=== PATIENT | female | born 1955 | race Caucasian/White ===

== ENCOUNTER 2016-07-29 08:01 | Day surgery (SDC) | payer OTHER ==
[~2016-07-29 08:01] MED LIST: DIPRIVAN 200 MG/20 ML IV ONE
[2016-07-29] MEDS ORDERED: Lactated Ringers 1,000 ML IV SCH (08:30)
[2016-07-29] MEDS ORDERED: TETRACAINE 0.5% STERI-UNIT SOL OP ONE ×2 (08:30)
[2016-07-29] MEDS ORDERED: Ak-Dilate OPHTHALMIC*** 0.71 ML, Cyclogyl 1% OPHTH SOL 5 ML 0.71 ML, GATIFLOXACIN 0.5% ... OP ONE ×4 (08:30)
[2016-07-29] MEDS ORDERED: Lactated Ringers 1,000 ML IV ONE (08:32)
[2016-07-29] MEDS ORDERED: ACETAZOLAMIDE 250 MG TABLET PO ONE (09:30)
[2016-07-29] MEDS ORDERED: Zofran 4 MG/2 ML VIAL IV PRN (09:30)
[2016-07-29] MEDS ORDERED: BSS 500 ML, Fortaz/Tazicef 1 GM** 0.2 G IO ONE ×2 (10:00)
[2016-07-29] MEDS ORDERED: LIDOCAINE HCL 1% AMPUL 5 ML IJ ONE (10:00)
[2016-07-29] MEDS ORDERED: Epinephrine Preservative Free 1 MG/ML INTRAOP ONE (10:00)
[2016-07-29] MEDS ORDERED: BETADINE 5% OPHTHALMIC 30 ML OP ONE (10:00)
[2016-07-29 11:51] VITALS: BP 147/72; PULSE 16; O2SAT 95
--- NOTE | 2016-07-29 12:49 | OP ---
DATE/TIME OF OPERATION: 07/29/2016 1034 TIME DICTATED: 1206 PREOPERATIVE DIAGNOSIS: Senile cataract of left eye. POSTOPERATIVE DIAGNOSIS: Senile cataract of left eye. SURGEON: Baldomero Cooley MD AUTOMOBILE BRAKE BONDER: None. OPERATION: Cataract extraction of left eye with an intraocular lens implant STANDARD __X___ COMPLEX ANESTHESIA: MAC. ___X___ Monitored anesthesia care in combination with topical and intra-cameral anesthesia (because of the established specific risk of reflux, arrhythmias, or an anxiety attack associated with ocular manipulation as well as difficulty of the miner to manage such potentially catastrophic events while simultaneously attempting to complete the surgical procedure, it was deemed necessary for the patient's safety to have an anesthesiologist or a nurse health and safety advisor present during the procedure whenever possible. The anesthesiologist or the nurse health and safety advisor was utilized to monitor and regulate the intravenous sedation of the patient, so the patient was cooperative, relaxed, and comfortable). Topical anesthesia using Tetracaine eye drops together with intra cameral anesthesia using Lidocaine 1% MPF. The nurse was utilized to monitor the patient. ANESTHESIA PROVIDER: Cullen Vail CRNA. COMPLICATIONS: None. BLOOD LOSS: None. INDICATIONS: The patient is undergoing cataract surgery in the hopes of eliminating the visual complaints and difficulty. PROCEDURE: After arriving at the facility's outpatient surgery area, an IV was started; the patient was given 5 mg of p.o. Versed. (If an anesthesia provider was not monitoring the patient) The patient was then given topical anesthetic Tetracaine eye drops. A cotton pellet was soaked into a solution of a combination of Zymaxid 0.5%, Aj-Synephrine 2.5% and Ocufen (other drops might have been substituted referenced in the patient's record). The pellet was inserted by the RN into the lower conjunctival cul-de-sac with a sterile forceps and left for 20 minutes. The pellet was then removed by the RN with a sterile forceps before taking the patient to the operating room. The preoperative area nurse identified the patient and marked the correct eye to be operated on. I identified the correct eye to be operated on and marked it appropriately in the outpatient surgery area. The patient was then taken into the operating room. Tetracaine eye drops were installed again in the correct eye. The eyelids and the lashes and the lid margins were scrubbed with Betadine solution. One drop of the diluted Betadine solution was placed in the conjunctival cul-de-sac for 45 seconds and then was irrigated. A drop of Tetracaine Gel was placed in the conjunctival cul-de-sac. The patient's forehead was taped to secure it during the procedure. The patient was monitored. The patient was then draped in the usual way for this procedure. An eye speculum was used to separate the eyelids. The eye was then fixated and a temporal 2.5 mm incision was made in the clear cornea temporally at the limbus. Through the incision, 0.25 cc of 1% non-preserved lidocaine was injected into the anterior chamber for intracameral anesthesia. The anterior chamber was then filled with viscoelastic. The pupil was small. I felt that it would be safer to mechanically dilate the pupil. A Malyugin ring was used at this point which dilated the pupil. That was removed at the end of the procedure prior to aspiration of the viscoelastic from the anterior chamber and posterior to the intraocular lens implant. The cataract had a great amount of cortical changes. That rendered seeing the anterior capsule difficult for a safe performance of an anterior capsulotomy. I injected an air bubble into the anterior chamber. I then injected 1 ML of vision blue solution into the anterior chamber. The vision blue solution was irrigated from the anterior chamber after 30 seconds. The anterior capsule was stained which facilitated performing the anterior capsulotomy safely. After that was completed, a cystotome was introduced into the anterior chamber and a round anterior capsulotomy was performed. The capsule was removed by a forceps. Hydrodissection was next carried utilizing a 25-gauge cannula and balanced salt solution to delineate the cortical material from the capsule and the nucleus from the cortical material. The nucleus was rotated freely into the capsular bag with no difficulty. The phaco tip of the [employer] Phacoemulsifier was introduced into the anterior chamber and two grooves were made into the nucleus 90 degrees apart. Using two spatulas resulted into the nucleus being fractured into four quadrants. The phaco tip was then used to remove each quadrant of the nucleus. Viscoelastic was used during this process to protect the corneal endothelium. Once the entire nucleus was removed, the phaco tip then was removed and the irrigation tip was introduced into the eye and the cortex was removed. The posterior capsule was polished. It was noticed that there was a tear into the posterior capsule with few vitreous strands into the pupil plan. An anterior vitrectomy was performed. A 21.00 diopter, SN60WF, posterior chamber lens implant, was inspected and found to be grossly normal. The implant was inserted into the implant injector cartridge; Viscoelastic again was introduced into the anterior chamber, which filled the capsular bag. The implant injector's cartridge tip was placed at the limbal wound and the posterior chamber implant was released into the capsular bag and rotated appropriately. The implant was found to be into the capsular bag and it was centered. __X___ 0.2 ml of Tri-Moxi was introduced via 27 gauge cannula into the vitreous cavity through the ciliary processes. Viscoelastic was aspirated from the anterior chamber and posterior to the intraocular lens implant from the capsular bag using the irrigating tip. The anterior chamber was irrigated and filled with 5 cc antibiotic solution (500 cc of BSS plus 2 ml of Fortaz 100 mg/ml) ( if patient was not allergic to the medication). The lips of the corneal incision were hydrated using BSS solution. The anterior chamber was checked and found to be water tight. One drop each of antibiotic, steroid and NSAID drops (refer to chart for drops used) were placed in the conjunctival cul-de-sac of the operated eye. Patient tolerated the procedure quite well and left the operating room in satisfactory condition. DISCHARGE SUMMARY: The patient was released in stable condition. The patient and those with the patient were given an instruction sheet as of how to care for the eye after surgery as well as counseling on any abnormal laboratory studies by the postoperative RN. The patient was also given an appointment card for follow-up in the office and is to call immediately for any difficulties including but not limited to pain in the eye, decreased vision, discharge from the eye, headache and or fever. DISCHARGE DIAGNOSIS: Pseudophakia of left eye.
== END 2016-07-29 12:00 | disposition home or self-care (01) ==
LOC: SDC 08:01
PROVIDERS: ATTEND Ophthalmology
PROC: 08RK3JZ Replacement of Left Lens with Synthetic Substitute, Percutaneous Approach (ICD-10-PCS; principal; 2016-07-29)
DX: H25.9 Unspecified age-related cataract (principal); I10 Essential (primary) hypertension; M19.90 Unspecified osteoarthritis, unspecified site; Z79.899 Other long term (current) drug therapy
CPT/HCPCS: 00142; C1780; J0171; J2704; A9270-GY

== ENCOUNTER 2016-08-26 08:10 | Day surgery (SDC) | payer OTHER ==
[~2016-08-26 08:10] MED LIST changes: +Ak-Dilate OPHTHALMIC*** 0.71 ML, Cyclogyl 1% OPHTH SOL 5 ML 0.71 ML, GATIFLOXACIN 0.5% ... OP ONE; +Lactated Ringers 1,000 ML IV SCH; +TETRACAINE 0.5% STERI-UNIT SOL OP ONE
[2016-08-26] MEDS ORDERED: Lactated Ringers 1,000 ML IV ONE (08:29)
[2016-08-26] MEDS ORDERED: Zofran 4 MG/2 ML VIAL IV PRN (09:00)
[2016-08-26] MEDS ORDERED: ACETAZOLAMIDE 250 MG TABLET PO ONE (09:00)
[2016-08-26] MEDS: TETRACAINE 0.5% STERI-UNIT SOL OP ONE (09:03)
[2016-08-26 11:22] VITALS: O2SAT 97
[2016-08-26 11:51] VITALS: BP 125/72; PULSE 73
--- NOTE | 2016-08-26 13:08 | OP ---
DATE/TIME OF OPERATION: 08/26/2016 1019 TIME DICTATED: 1231 PREOPERATIVE DIAGNOSIS: Senile cataract of right eye. POSTOPERATIVE DIAGNOSIS: Senile cataract of right eye. SURGEON: Baldomero Cooley MD SALES NEGOTIATOR: None. OPERATION: Cataract extraction of right eye with an intraocular lens implant. STANDARD __X___ COMPLEX ANESTHESIA: MAC. ___X___ Monitored anesthesia care in combination with topical and intra-cameral anesthesia (because of the established specific risk of reflux, arrhythmias, or an anxiety attack associated with ocular manipulation as well as difficulty of the glove machine operator to manage such potentially catastrophic events while simultaneously attempting to complete the surgical procedure, it was deemed necessary for the patient's safety to have an anesthesiologist or a nurse bonding supervisor present during the procedure whenever possible. The anesthesiologist or the nurse bonding supervisor was utilized to monitor and regulate the intravenous sedation of the patient, so the patient was cooperative, relaxed, and comfortable). Topical anesthesia using Tetracaine eye drops together with intra cameral anesthesia using Lidocaine 1% MPF. The nurse was utilized to monitor the patient. ANESTHESIA PROVIDER: Cullen Vail CRNA. COMPLICATIONS: None. BLOOD LOSS: None. INDICATIONS: The patient is undergoing cataract surgery in the hopes of eliminating the visual complaints and difficulty. PROCEDURE: After arriving at the facility's outpatient surgery area, an IV was started; the patient was given 5 mg of p.o. Versed. (If an anesthesia provider was not monitoring the patient) The patient was then given topical anesthetic Tetracaine eye drops. A cotton pellet was soaked into a solution of a combination of Zymaxid 0.5%, Aj-Synephrine 2.5% and Ocufen (other drops might have been substituted referenced in the patient's record). The pellet was inserted by the RN into the lower conjunctival cul-de-sac with a sterile forceps and left for 20 minutes. The pellet was then removed by the RN with a sterile forceps before taking the patient to the operating room. The preoperative area nurse identified the patient and marked the correct eye to be operated on. I identified the correct eye to be operated on and marked it appropriately in the outpatient surgery area. The patient was then taken into the operating room. Tetracaine eye drops were installed again in the correct eye. The eyelids and the lashes and the lid margins were scrubbed with Betadine solution. One drop of the diluted Betadine solution was placed in the conjunctival cul-de-sac for 45 seconds and then was irrigated. A drop of Tetracaine Gel was placed in the conjunctival cul-de-sac. The patient's forehead was taped to secure it during the procedure. The patient was monitored. The patient was then draped in the usual way for this procedure. An eye speculum was used to separate the eyelids. The eye was then fixated and a temporal 2.5 mm incision was made in the clear cornea temporally at the limbus. Through the incision, 0.25 cc of 1% non-preserved lidocaine was injected into the anterior chamber for intracameral anesthesia. The anterior chamber was then filled with viscoelastic. The pupil was small. I felt that it would be safer to mechanically dilate the pupil. A Malyugin ring was used at this point which dilated the pupil. That was removed at the end of the procedure prior to aspiration of the viscoelastic from the anterior chamber and posterior to the intraocular lens implant. The cataract had a great amount of cortical changes. That rendered seeing the anterior capsule difficult for a safe performance of an anterior capsulotomy. I injected an air bubble into the anterior chamber. I then injected 1 ML of vision blue solution into the anterior chamber. The vision blue solution was irrigated from the anterior chamber after 30 seconds. The anterior capsule was stained which facilitated performing the anterior capsulotomy safely. After that was completed, a cystotome was introduced into the anterior chamber and a round anterior capsulotomy was performed. The capsule was removed by a forceps. Hydrodissection was next carried utilizing a 25-gauge cannula and balanced salt solution to delineate the cortical material from the capsule and the nucleus from the cortical material. The nucleus was rotated freely into the capsular bag with no difficulty. The phaco tip of the [employer] Phacoemulsifier was introduced into the anterior chamber and two grooves were made into the nucleus 90 degrees apart. Using two spatulas resulted into the nucleus being fractured into four quadrants. The phaco tip was then used to remove each quadrant of the nucleus. Viscoelastic was used during this process to protect the corneal endothelium. Once the entire nucleus was removed, the phaco tip then was removed and the irrigation tip was introduced into the eye and the cortex was removed. The posterior capsule was polished. It was noticed that there was a tear into the posterior capsule with few vitreous strands into the pupil plan. An anterior vitrectomy was performed. A 21.00 diopter, SN60WF, posterior chamber lens implant, was inspected and found to be grossly normal. The implant was inserted into the implant injector cartridge; Viscoelastic again was introduced into the anterior chamber, which filled the capsular bag. The implant injector's cartridge tip was placed at the limbal wound and the posterior chamber implant was released into the capsular bag and rotated appropriately. The implant was found to be into the capsular bag and it was centered. __X___ 0.2 ml of Tri-Moxi was introduced via 27 gauge cannula into the vitreous cavity through the ciliary processes. Viscoelastic was aspirated from the anterior chamber and posterior to the intraocular lens implant from the capsular bag using the irrigating tip. The anterior chamber was irrigated and filled with 5 cc antibiotic solution (500 cc of BSS plus 2 ml of Fortaz 100 mg/ml) ( if patient was not allergic to the medication). The lips of the corneal incision were hydrated using BSS solution. The anterior chamber was checked and found to be water tight. One drop each of antibiotic, steroid and NSAID drops (refer to chart for drops used) were placed in the conjunctival cul-de-sac of the operated eye. Patient tolerated the procedure quite well and left the operating room in satisfactory condition. DISCHARGE SUMMARY: The patient was released in stable condition. The patient and those with the patient were given an instruction sheet as of how to care for the eye after surgery as well as counseling on any abnormal laboratory studies by the postoperative RN. The patient was also given an appointment card for follow-up in the office and is to call immediately for any difficulties including but not limited to pain in the eye, decreased vision, discharge from the eye, headache and or fever. DISCHARGE DIAGNOSIS: Pseudophakia of right eye.
[2016-08-26] MEDS ORDERED: LIDOCAINE HCL 1% AMPUL 5 ML IJ ONE (13:30)
[2016-08-26] MEDS ORDERED: BSS 500 ML, Fortaz/Tazicef 1 GM** 0.2 G IO ONE ×2 (13:30)
[2016-08-26] MEDS ORDERED: BETADINE 5% OPHTHALMIC 30 ML OP ONE (13:30)
[2016-08-26] MEDS ORDERED: Epinephrine Preservative Free 1 MG/ML INTRAOP ONE (13:30)
== END 2016-08-26 11:51 | disposition home or self-care (01) ==
LOC: SDC 08:10
PROVIDERS: ATTEND Ophthalmology
PROC: 08RJ3JZ Replacement of Right Lens with Synthetic Substitute, Percutaneous Approach (ICD-10-PCS; principal; 2016-08-26)
PROC: 08B43ZZ Excision of Right Vitreous, Percutaneous Approach (ICD-10-PCS; 2016-08-26)
DX: H25.9 Unspecified age-related cataract (principal); I10 Essential (primary) hypertension; M19.90 Unspecified osteoarthritis, unspecified site
CPT/HCPCS: 00142; C1780; J0171; J2704; A9270-GY

== ENCOUNTER 2017-01-26 14:10 | Inpatient (IN) | payer OTHER ==
[2017-01-26] MEDS: NORCO 7.5/325 MG TAB PO PRN (20:14)
[2017-01-26] MEDS: ZOCOR 20MG PO SCH (21:25)
[2017-01-27] MEDS: NORCO 7.5/325 MG TAB PO PRN ×5 (03:57→22:26)
--- NOTE | 2017-01-27 08:54 | PCM.HP ---
History of Present Illness - Chief Complaint Chief Complaint: Deconditioning r/t left total knee replacement History of Present Illness: is a 61 year old female pt of mine from [facility] who is POD #5 from repeat total knee replacement by Dr. Daniel (L knee). Her previous knee had trouble with the glue apparently, she said there were no surprises or problems noted during the surgery. She comes here for rehab. So far her rehab has been going well. This morning she is not feeling great, she is having upper and mid stomach pain , bilat, of 5-6/10. No vomiting. Tolerating po. She thinks it's due to the celebrex. Her knee pain this morning is 4/10. She does complain of some soreness in the R trapezius. - Review of Systems Abdominal/Gastrointestinal: Abdominal Pain, Constipation Skin: Pruritis (L lower back) Psychological: No Anxiety, No Depression, No Suicidal Ideations All Other Systems: Reviewed and Negative Medications & Allergies Home Medications: Home Medication List Hydrochlorothiazide 12.5 mg PO DAILY 06/22/13 [History Confirmed 01/26/17] Telmisartan 80 mg [Micardis 80 MG Tablet] 80 mg PO DAILY 06/22/13 [ History Confirmed 01/26/17] Escitalopram Oxalate [Lexapro] 10 mg PO DAILY 08/23/15 [History Confirmed ] Aspirin EC 325 mg [Ecotrin 325 MG] 325 mg PO DAILY 01/26/17 [History Confirmed 01/26/17] Celecoxib 100 mg [celeBREX 100 MG] 100 mg PO DAILY 01/26/17 [History Confirmed 01/26/17] Hydrocodone Bit/Acetaminophen [[place] 7.5-325 Tablet] 1 each PO Q4HPRN PRN [History Confirmed 01/26/17] Lidocaine 1 patch TOP DAILY 01/26/17 [History Confirmed 01/26/17] Multivitamin [Multivitamins] 1 each PO DAILY 01/26/17 [History Confirmed ] Simvastatin 20Mg [Zocor 20Mg] 20 mg PO QPM 01/26/17 [History Confirmed 01/26] Allergies/Adverse Reactions: Allergies Allergy/AdvReac Type Severity Reaction Status Date / Time shingles vaccine Allergy Severe Blisters Uncoded 08/26/16 08:34 - Past Medical History Past Medical History: Yes Neurological History: Migraines ENT History: Cataracts Cardiac History: Hypertension Respiratory History: No Pertinent History Endocrine Medical History: No Pertinent History Musculoskelatal History: Arthritis GI Medical History: No Pertinent History History: No Pertinent History Pyscho-Social History: Anxiety, Depression Reproductive Disorders: No Pertinent History Comment: anemia - Female History Are you now?: No - Past Surgical History Past Surgical History: Yes Neuro Surgical History: No Pertinent History Cardiac History: No Pertinent History Respiratory Surgery: No Pertinent History GI Surgical History: No Pertinent History Genitourinary Surgical Hx: No Pertinent History Musculskeletal Surgical Hx: Joint Replacement Female Surgical History: Section, Tubal Ligation Other Surgical History: left X2 and right knee replacements - Social History Smoking Status: Never smoker How long have you smoked: 10years Exposure to second hand smoke: No Alcohol: None Drug Use: none - Physical Exam Vital Signs: Vital Signs - 24 hr Temp Pulse Resp BP Pulse Ox 01/27/17 07:16 98.2 F 80 20 135/62 93 L 01/26/17 17:48 98.3 F 85 20 140/66 94 L 01/26/17 17:40 98.3 F 85 20 140/66 94 L General Appearance: no apparent distress, alert Neurologic Exam: oriented x 3, cooperative, normal mood/affect Eye Exam: eyes nml inspection Ears, Nose, Throat Exam: moist mucous membranes Neck Exam: normal inspection, non-tender, other (R trapzius no lesions, nttp), No lymphadenopathy Respiratory Exam: normal breath sounds, No crackles/rales, No rhonchi, No wheezing Cardiovascular Exam: regular rate/rhythm, normal heart sounds, No murmur Gastrointestinal/Abdomen Exam: soft, tenderness (some lower abd tenderness with palpation on the epigastrum), other (decreased bowel sounds), No guarding, No rebound Back Exam: other (L lower back there is an approx 2x3 and an approx 0.5 x 2 cm macular erythematous lesion) Extremity Exam: other (L knee with post surgical dressing in place, no erythema or exudate, mild warmth, mild edema. feet without edema bilat) Assessment/Plan (1) S/P knee replacement Current Visit: No Status: Acute Qualifiers: Laterality: left Qualified Code(s): Z96.652 - Presence of left artificial knee joint Assessment & Plan: POD #5, doing well, start rehab here today. Code(s): Z96.659 - PRESENCE OF UNSPECIFIED ARTIFICIAL KNEE JOINT (2) Abdominal pain Current Visit: Yes Status: Acute Qualifiers: Abdominal location: generalized Qualified Code(s): R10.84 - Generalized abdominal pain Assessment & Plan: could be due to constipation, certainly could be related to celebrex. no s/sx of GI bleeding. Starting her on protonix po and on stool softeners. Exam is benign and she is tolerating po. Code(s): R10.9 - UNSPECIFIED ABDOMINAL PAIN (3) Hypertension Current Visit: No Status: Chronic Qualifiers: Hypertension type: essential hypertension Qualified Code(s): I10 - Essential (primary) hypertension Assessment & Plan: restart home micardis; observe. Code(s): I10 - ESSENTIAL (PRIMARY) HYPERTENSION (4) Constipation Current Visit: No Status: Resolved Qualifiers: Constipation type: drug induced constipation Qualified Code(s): K59.03 - Drug induced constipation Assessment & Plan: colace BID and miralax Prn. Code(s): K59.00 - CONSTIPATION, UNSPECIFIED
[2017-01-27 09:16] LABS: BASOPHIL % 0.2 % (0.0-0.4); Eosinophil % 2.2 % (0.00-5.0); Granulocytes % 73.6 % (36.0-66.0); Lymphocytes % 13.1 % (24.0-44.0); Mean Cell Volume 97.7 fl (78-100); Monocytes % 10.9 % (0.0-12.0); Platelet Count 180 K/mm3 (150-450); Red Cell Distribution Width 12.2 % (11.5-14.0); White Blood Count 4.6 K/mm3 (4.0-10.5)
[2017-01-27] MEDS: hydroDIURIL 25 MG PO SCH (09:56)
[2017-01-27] MEDS: THERAGRAN MULTIVITAMIN PO SCH (09:58)
[2017-01-27] MEDS: Colace 100 MG PO SCH ×2 (09:58→22:26)
[2017-01-27] MEDS: Micardis 80 MG Tablet PO SCH (09:58)
[2017-01-27] MEDS: Lexapro 10 MG PO SCH (09:58)
[2017-01-27] MEDS: Ecotrin 325 MG PO SCH (09:58)
[2017-01-27] MEDS: celeBREX 100 MG PO SCH (09:58)
[2017-01-27] MEDS: Protonix 40MG Tablet PO SCH (09:58)
[2017-01-27] MEDS ORDERED: NON-FORMULARY ITEM (Hydrochlorothiazide [Hydrochlorothiazide] 12.5 MG) PO SCH (10:00)
[2017-01-27] MEDS ORDERED: NON-FORMULARY ITEM (Multivitamin [Multivitamins] 1 EACH) PO SCH (10:00)
[2017-01-27] MEDS ORDERED: Aplisol ID SCH (10:00)
[2017-01-27] MEDS: Lidoderm Patch 5% TOP SCH (10:01)
[2017-01-27 10:42] LABS: ALBUMIN 2.6 g/dL (3.4-5.0); ALKALINE PHOSPHATASE 78 U/L (46-116); ANION GAP 10.8 MEQ/L (5-15); BLOOD UREA NITROGEN 9 mg/dL (9-20); CHLORIDE 101 mEq/L (98-107); Carbon Dioxide 30.1 mEq/L (21-32); Glucose 97 MG/DL (70-110); Potassium 4.1 mEq/L (3.5-5.1); SGOT/AST 15 U/L (15-37); SGPT/ALT 10 U/L (12-78); SODIUM 138 mEq/L (136-145); Total Protein 5.7 gm/dL (6.4-8.2)
[2017-01-27] MEDS: ZOCOR 20MG PO SCH (22:26)
[2017-01-28] MEDS: NORCO 7.5/325 MG TAB PO PRN ×5 (03:00→22:39)
--- NOTE | 2017-01-28 08:44 | PCM.NOTE ---
Date and Time: 01/28/17840 Subjective Assessment: The itching on patidebbi'ts back has become a deep aching pain and she has lesions that appear to be shingles on her L abdomen. - Review of Systems Constitutional: No Fever Skin: Skin Lesions Objective Exam General Appearance: no apparent distress, obese Neurologic Exam: alert, oriented x 3, cooperative Skin Exam: other (L lower back with previous erythematous macular lesions now with superimposed papules/vesicles. L lower abdomen with patches of vesicular lesions on erythematous base) OBJECTIVE DATA Vital Signs: Vital Signs - 24 hr Temp Pulse Resp BP Pulse Ox 01/28/17 07:09 97.6 F 62 16 112/67 93 L 01/28/17 07:08 98.2 F 82 16 126/60 93 L 01/27/17 21:00 98.7 F 82 18 129/59 95 01/27/17 16:15 98.1 F 80 20 131/62 95 01/27/17 12:13 98.1 F 78 18 136/66 96 Pain Assessment - Last Documented Pain Intensity 7 Pain Scale Used 0-10 Pain Scale Intake and Output: Intake & Output 01/25/17 01/26/17 01/27/17 01/28/17 11:59 11:59 11:59 11:59 Intake Total 680 800 Output Total 0 Balance 680 800 Weight 102.648 kg Lab Results: Lab Results-Last 24 Hours 01/27/17 01/27/17 Range/Units 09:05 09:05 WBC 4.6 (4.0-10.5) K/mm3 RBC 3.50 L (4.1-5.4) M/mm3 Hgb 11.2 L (12.0-16.0) gm/dl Hct 34.2 L (35-47) % MCV 97.7 (78-100) fl MCH 32.0 (26-32) pg MCHC 32.7 (32-36) g/dl RDW 12.2 (11.5-14.0) % Plt Count 180 (150-450) K/mm3 MPV 9.0 (6-9.5) fl Gran % 73.6 H (36.0-66.0) % Lymphocytes % 13.1 L (24.0-44.0) % Monocytes % 10.9 (0.0-12.0) % Eosinophils % 2.2 (0.00-5.0) % Basophils % 0.2 (0.0-0.4) % Basophils # 0.01 (0-0.4) Sodium 138 (136-145) mEq/L Potassium 4.1 (3.5-5.1) mEq/L Chloride 101 (98-107) mEq/L Carbon Dioxide 30.1 (21-32) mEq/L Anion Gap 10.8 (5-15) MEQ/L BUN 9 (9-20) mg/dL Creatinine 0.63 (0.55-1.30) mg/dl Estimated GFR > 60 ML/MIN Glucose 97 (70-110) MG/DL Calcium 9.2 (8.5-10.1) mg/dL Total Bilirubin 0.50 (0.2-1.0) mg/dL AST 15 (15-37) U/L ALT 10 L (12-78) U/L Alkaline Phosphatase 78 (46-116) U/L Serum Total Protein 5.7 L (6.4-8.2) gm/dL Albumin 2.6 L (3.4-5.0) g/dL Assessment/Plan (1) Herpes zoster Current Visit: Yes Status: Acute Qualifiers: Herpes zoster complications: without complications Qualified Code(s): B02.9 - Zoster without complications Assessment & Plan: Pt placed in isolation. Start on acyclovir 800mg 5x/d (x 7d). I will avoid steroids in this post-operative patient. Code(s): B02.9 - ZOSTER WITHOUT COMPLICATIONS (2) S/P knee replacement Current Visit: No Status: Acute Qualifiers: Laterality: left Qualified Code(s): Z96.652 - Presence of left artificial knee joint Assessment & Plan: Doing well, in therapy, PT saw pt yesterday, thank you! Code(s): Z96.659 - PRESENCE OF UNSPECIFIED ARTIFICIAL KNEE JOINT (3) Abdominal pain Current Visit: Yes Status: Acute Qualifiers: Abdominal location: generalized Qualified Code(s): R10.84 - Generalized abdominal pain Assessment & Plan: no complaint today Code(s): R10.9 - UNSPECIFIED ABDOMINAL PAIN (4) Hypertension Current Visit: No Status: Chronic Qualifiers: Hypertension type: essential hypertension Qualified Code(s): I10 - Essential (primary) hypertension Code(s): I10 - ESSENTIAL (PRIMARY) HYPERTENSION (5) Constipation Current Visit: No Status: Resolved Qualifiers: Constipation type: drug induced constipation Qualified Code(s): K59.03 - Drug induced constipation Code(s): K59.00 - CONSTIPATION, UNSPECIFIED
[2017-01-28] MEDS: Micardis 80 MG Tablet PO SCH (09:31)
[2017-01-28] MEDS: Colace 100 MG PO SCH ×2 (09:32→22:39)
[2017-01-28] MEDS: ZOVIRAX 800 MG PO SCH ×4 (09:32→22:40)
[2017-01-28] MEDS: celeBREX 100 MG PO SCH (09:32)
[2017-01-28] MEDS: Protonix 40MG Tablet PO SCH (09:32)
[2017-01-28] MEDS: Lexapro 10 MG PO SCH (09:32)
[2017-01-28] MEDS: Ecotrin 325 MG PO SCH (09:32)
[2017-01-28] MEDS: hydroDIURIL 25 MG PO SCH (09:32)
[2017-01-28] MEDS: THERAGRAN MULTIVITAMIN PO SCH (09:35)
[2017-01-28] MEDS: Lidoderm Patch 5% TOP SCH (09:45)
[2017-01-28] MEDS ORDERED: Lidoderm Patch 5% TOP PRN (11:09)
[2017-01-28] MEDS: ZOCOR 20MG PO SCH (22:39)
[2017-01-29] MEDS: NORCO 7.5/325 MG TAB PO PRN ×5 (05:15→22:08)
[2017-01-29] MEDS: ZOVIRAX 800 MG PO SCH ×5 (07:19→22:09)
[2017-01-29] MEDS: Lexapro 10 MG PO SCH (09:05)
[2017-01-29] MEDS: Micardis 80 MG Tablet PO SCH (09:05)
[2017-01-29] MEDS: Ecotrin 325 MG PO SCH (09:05)
[2017-01-29] MEDS: hydroDIURIL 25 MG PO SCH (09:05)
[2017-01-29] MEDS: Protonix 40MG Tablet PO SCH (09:05)
[2017-01-29] MEDS: Colace 100 MG PO SCH ×2 (09:05→22:09)
[2017-01-29] MEDS: THERAGRAN MULTIVITAMIN PO SCH (09:05)
[2017-01-29] MEDS: celeBREX 100 MG PO SCH (09:05)
[2017-01-29] MEDS: ZOCOR 20MG PO SCH (22:09)
[2017-01-30] MEDS: NORCO 7.5/325 MG TAB PO PRN ×5 (05:04→23:11)
[2017-01-30] MEDS: ZOVIRAX 800 MG PO SCH ×6 (06:01→22:08)
[2017-01-30] MEDS: Lexapro 10 MG PO SCH (09:07)
[2017-01-30] MEDS: Protonix 40MG Tablet PO SCH (09:07)
[2017-01-30] MEDS: hydroDIURIL 25 MG PO SCH (09:07)
[2017-01-30] MEDS: THERAGRAN MULTIVITAMIN PO SCH (09:07)
[2017-01-30] MEDS: celeBREX 100 MG PO SCH (09:07)
[2017-01-30] MEDS: Colace 100 MG PO SCH ×2 (09:07→22:08)
[2017-01-30] MEDS: Micardis 80 MG Tablet PO SCH (09:09)
[2017-01-30] MEDS: Miralax Powder 17GM PACKET PO PRN (09:09)
[2017-01-30] MEDS: Ecotrin 325 MG PO SCH (09:09)
[2017-01-30] MEDS: ZOCOR 20MG PO SCH (22:08)
[2017-01-31] MEDS: NORCO 7.5/325 MG TAB PO PRN ×5 (04:27→22:33)
[2017-01-31] MEDS: ZOVIRAX 800 MG PO SCH ×5 (06:26→22:32)
[2017-01-31] MEDS: hydroDIURIL 25 MG PO SCH (08:34)
[2017-01-31] MEDS: Micardis 80 MG Tablet PO SCH (08:34)
[2017-01-31] MEDS: THERAGRAN MULTIVITAMIN PO SCH (08:34)
[2017-01-31] MEDS: Colace 100 MG PO SCH ×2 (08:34→22:32)
[2017-01-31] MEDS: Protonix 40MG Tablet PO SCH (08:34)
[2017-01-31] MEDS: Ecotrin 325 MG PO SCH (08:35)
[2017-01-31] MEDS: celeBREX 100 MG PO SCH (08:36)
[2017-01-31] MEDS: Lexapro 10 MG PO SCH (08:36)
[2017-01-31] MEDS: ZOCOR 20MG PO SCH (22:33)
[2017-02-01] MEDS: NORCO 7.5/325 MG TAB PO PRN ×4 (03:22→20:10)
[2017-02-01] MEDS: ZOVIRAX 800 MG PO SCH ×5 (06:31→22:04)
[2017-02-01] MEDS: celeBREX 100 MG PO SCH (09:59)
[2017-02-01] MEDS: Colace 100 MG PO SCH ×2 (09:59→22:04)
[2017-02-01] MEDS: Ecotrin 325 MG PO SCH (10:00)
[2017-02-01] MEDS: hydroDIURIL 25 MG PO SCH (10:00)
[2017-02-01] MEDS: Protonix 40MG Tablet PO SCH (10:01)
[2017-02-01] MEDS: Lexapro 10 MG PO SCH (10:01)
[2017-02-01] MEDS: Micardis 80 MG Tablet PO SCH (10:01)
[2017-02-01] MEDS: Miralax Powder 17GM PACKET PO PRN (10:02)
[2017-02-01] MEDS: THERAGRAN MULTIVITAMIN PO SCH (10:02)
[2017-02-01] MEDS: ZOCOR 20MG PO SCH (22:05)
[2017-02-02] MEDS: NORCO 7.5/325 MG TAB PO PRN ×2 (03:03→07:31)
[2017-02-02 07:17] VITALS: BP 122/55; PULSE 77; O2SAT 94
[2017-02-02] MEDS: Protonix 40MG Tablet PO SCH (07:30)
[2017-02-02] MEDS: Micardis 80 MG Tablet PO SCH (07:30)
[2017-02-02] MEDS: Lexapro 10 MG PO SCH (07:30)
[2017-02-02] MEDS: THERAGRAN MULTIVITAMIN PO SCH (07:30)
[2017-02-02] MEDS: hydroDIURIL 25 MG PO SCH (07:31)
[2017-02-02] MEDS: celeBREX 100 MG PO SCH (07:31)
[2017-02-02] MEDS: Ecotrin 325 MG PO SCH (07:31)
[2017-02-02] MEDS: Colace 100 MG PO SCH (07:31)
--- NOTE | 2017-02-02 08:43 | PCM.DS ---
Discharge Summary Date of Admission: 01/26/17 17:23 Admitting Physician: NAREN CERVANTES Primary Care Provider: NAREN CERVANTES Allergies Allergies shingles vaccine Allergy (Severe, Uncoded 08/26/16 08:34) Blisters blisters on [facility] Summary - Hospital Course Hospital Course: Pt admitted s/p total knee on L by Dr. Daniel, here for rehab. During her stay she had constipation (better with miralax) and an outbreak of the shingles. Her therapy has been going well; she is on a walker. Her shingles have scabbed and dried. She is tolerating po well. Only complaint this morning is deep back ache in the area where the shingles appeared. She will continue outpatient therapy. - Vitals & Intake/Output Vital Signs: Vital Signs Temperature 98.1 F 02/02/17 07:00 Pulse Rate 77 02/02/17 07:00 Respiratory Rate 18 02/02/17 07:00 Blood Pressure 122/55 02/02/17 07:00 O2 Sat by Pulse Oximetry 94 L 02/02/17 07:00 Intake & Output: Intake & Output 01/30/17 01/31/17 02/01/17 02/02/17 11:59 11:59 11:59 11:59 Intake Total 2360 3060 2540 1920 Output Total 1902 Balance 458 3060 2540 1920 - Lab Result Diagrams: 01/27/17 09:05 01/27/17 09:05 - Procedures and Test Procedures and Tests throughout Hospitalization: Therapy Orders & Screens 01/26/17 17:35 PT Eval & Treat ( Order) ROUTINE Evaluate: Yes Treat: Yes Reason for Eval:: left total knee. direct swingbed status Diagnosis: left total knee 01/26/17 18:22 OT Screen per Nursing Assess Comment: Protocol Order Physician Instructions: Greater than 3 points order OT Admission Screening Reason For Exam: Triggered on Admission Diagnosis: Deconditioning r/t left total knee replacement Open Wound/Cellutlitis/Pressure Ulcers: No Acute Fx/ORIF/Change in wt bearing status: No Severe MUSCULOSKELETAL pain: No ADL Dysfunction: Yes Acute CVA w/Hemiparesis/Hemiplegia: No Decreased Functional Mobility/Strength: Yes Sprain/Strain: No Acute Post-op Mobility Dysfunction: Yes Total Points: 7 PT Screen per Nursing Assess Comment: Protocol Order Physician Instructions: Greater than 3 points order PT Admission Screenin Reason For Exam: Triggered on Admission Diagnosis: Deconditioning r/t left total knee replacement Open Wound/Cellutlitis/Pressure Ulcers: No Acute Fx/ORIF/Change in wt bearing status: No Severe MUSCULOSKELETAL pain: No ADL Dysfunction: Yes Acute CVA w/Hemiparesis/Hemiplegia: No Decreased Functional Mobility/Strength: Yes Sprain/Strain: No Acute Post-op Mobility Dysfunction: Yes Total Points: 7 Discharge Exam General Appearance: no apparent distress Neurologic Exam: alert, oriented x 3, cooperative Skin Exam: normal color, warm, dry, other (L lower abdomen with 2 areas (approx 3x3 cm ea) of small annular scabs.) Eye Exam: eyes nml inspection Ears, Nose, Throat Exam: moist mucous membranes Respiratory Exam: normal breath sounds, lungs clear, No crackles/rales, No rhonchi, No wheezing Cardiovascular Exam: regular rate/rhythm, normal heart sounds, No murmur Extremity Exam: other (L knee covered with postsurgical bandage; it is clean. no erythema/warmth surrounding (pt does have ice to lateral knee). No increased LE edema (chronic nonpitting edema present as usual)) Final Diagnosis/Problem List - Final Discharge Diagnosis/Problem (1) S/P knee replacement Current Visit: No Status: Acute Assessment & Plan: Has been doing well in rehab, home today for outpatient rehab. (2) Herpes zoster Current Visit: Yes Status: Acute Assessment & Plan: Much improved, out of isolation with scabbed lesions. Can try capsaicin cream for healed lesions on the back prn. (3) Abdominal pain Current Visit: Yes Status: Resolved (4) Hypertension Current Visit: No Status: Chronic Assessment & Plan: BP are stable here. (5) Constipation Current Visit: No Status: Resolved Assessment & Plan: Miralax and colace prn. - Discharge Disposition: Home, Self-Care Condition: Stable Prescriptions: Continue Telmisartan 80 mg [Micardis 80 MG Tablet] 80 mg PO DAILY Hydrochlorothiazide 12.5 mg PO DAILY Escitalopram Oxalate [Lexapro] 10 mg PO DAILY Simvastatin 20Mg [Zocor 20Mg] 20 mg PO QPM Multivitamin [Multivitamins] 1 each PO DAILY Lidocaine 1 patch TOP DAILY Hydrocodone Bit/Acetaminophen [Matlock 7.5-325 Tablet] 1 each PO Q4HPRN PRN PRN Reason: Pain Celecoxib 100 mg [celeBREX 100 MG] 100 mg PO DAILY Aspirin EC 325 mg [Ecotrin 325 MG] 325 mg PO DAILY Follow up with: NAREN CERVANTES [Primary Care Provider] - 1 Week Forms: Patient Portal Information
[2017-02-02] MEDS: ZOVIRAX 800 MG PO SCH (09:24)
[2017-02-06] MEDS ORDERED: Aplisol ID SCH (10:00)
== END 2017-02-02 10:55 | disposition home or self-care (01) | DRG 566 ==
LOC: MED SURG 17:23
PROVIDERS: ADMIT Family Medicine; ATTEND Family Medicine
DX: Z96.652 Presence of left artificial knee joint (principal); B02.9 Zoster without complications; R10.84 Generalized abdominal pain; I10 Essential (primary) hypertension; K59.03 Drug induced constipation; F41.8 Other specified anxiety disorders; D64.9 Anemia, unspecified; M19.90 Unspecified osteoarthritis, unspecified site; Z79.899 Other long term (current) drug therapy
CPT/HCPCS: 36415; 80053; 85025; 97110-GP; A9270-GY

== ENCOUNTER 2020-01-18 06:44 | Day surgery (SDC) | payer OTHER ==
[~2020-01-18 06:44] MED LIST changes: -Ak-Dilate OPHTHALMIC*** 0.71 ML, Cyclogyl 1% OPHTH SOL 5 ML 0.71 ML, GATIFLOXACIN 0.5% ... OP ONE; -TETRACAINE 0.5% STERI-UNIT SOL OP ONE
[2020-01-18] MEDS ORDERED: Lactated Ringers 1,000 ML IV ONE ×2 (06:53→09:38)
[2020-01-18] MEDS ORDERED: DIPRIVAN 200 MG/20 ML IV ONE (07:44)
[2020-01-18] MEDS ORDERED: Xylocaine-Mpf 2% 5 Ml Vial ONE (07:44)
[2020-01-18] MEDS ORDERED: Ketamine HCl 50 MG/ML ONE (07:44)
[2020-01-18 08:47] VITALS: O2SAT 95
[2020-01-18 08:58] VITALS: BP 150/78; PULSE 85
[2020-01-18] MEDS ORDERED: Sensorcaine 0.25% 10 ML ONE (09:38)
--- NOTE | 2020-01-18 10:48 | OP ---
SURGERY DATE/TIME: 01/18/2020 0800 PREOPERATIVE DIAGNOSIS: Chronic cough. POSTOPERATIVE DIAGNOSIS: Normal exam. PROCEDURE: EGD. SURGEON: Rehan Cooney M.D. ANESTHESIA: MAC by Hemanth Perkins CRNA. ESTIMATED BLOOD LOSS: None. SPECIMENS: None. DESCRIPTION OF PROCEDURE: After informed written consent was obtained, the patient was taken to the endoscopy suite. She was placed in left lateral decubitus position and a bite block was inserted. Anesthesia was titrated to the desired level of consciousness and the endoscope inserted into the posterior oropharynx and under direct visualization the esophagus was traversed. The esophageal mucosa had normal appearance free of any stricture or abnormalities. Gastroesophageal junction likewise had a normal appearance upon entry into the stomach. The patient did have significant coughing during the examination in spite of anesthesia. The gastric mucosa had a normal rugated appearance free of any obvious lesions or defects. The pylorus was traversed and the duodenum had a normal mucosal appearance with no lesions or abnormalities appreciable. Upon withdrawal again all mucosal structures were inspected and noted to be free of any lesions or defects. The scope was removed and the patient was transferred to the recovery room in good condition.
== END 2020-01-18 09:05 | disposition home or self-care (01) ==
LOC: SDC 06:44
PROVIDERS: ATTEND Family Medicine
DX: R05 Cough (principal); K21.9 Gastro-esophageal reflux disease without esophagitis; E78.5 Hyperlipidemia, unspecified; Z79.899 Other long term (current) drug therapy
CPT/HCPCS: J2704

== ENCOUNTER 2023-06-11 08:50 | Day surgery (SDC) | payer MEDICARE ==
--- NOTE | 2023-06-05 08:36 | HP ---
DATE OF SURGERY: 06/11/2023 HISTORY OF PRESENT ILLNESS: The patient is a 68-year-old female presents with last colonoscopy about 2013. Her grandfather and grandmother both had colon cancer. She does report having some heartburn and she is on some omeprazole. If she does go off of that she does have some pretty bad flare up. PAST MEDICAL HISTORY: Hypertension, hyperlipidemia, depression, gastroesophageal reflux disease. PAST SURGICAL HISTORY: Cataracts. Appendectomy. Knee replacement. section. ALLERGIES: VARICELLA VIRUS VACCINE LIVE. MEDICATIONS: Iron, omeprazole, Lexapro, Simvastatin, vitamin D2, telmisartan, Myrbetriq, hydrochlorothiazide. FAMILY HISTORY: Colon cancer. Uterine cancer. Prostate cancer. SOCIAL HISTORY: Former smoker. Denies alcohol. REVIEW OF SYSTEMS: CONSTITUTIONAL: Denies fever or chills. CHEST: Denies shortness of breath. CVS: Denies chest pain. ABDOMEN: Reports epigastric pain. PHYSICAL EXAMINATION: GENERAL: No acute distress. CHEST: Nonlabored. No shortness of breath. CVS: Regular rate and rhythm. ABDOMEN: Soft. IMPRESSION: Epigastric pain, family history of colon cancer. PLAN: EGD and colonoscopy with Dr. Timothy Walker. As dictated by Meghan De Oliveira NP.
[2023-06-11] MEDS: Lactated Ringers 1,000 ML IV SCH (09:37)
[2023-06-11] MEDS ORDERED: DIPRIVAN 200 MG/20 ML IV ONE ×2 (10:58→11:15)
[2023-06-11] MEDS ORDERED: Versed 2 MG/2 ML Injection ONE (11:01)
[2023-06-11 11:30] VITALS: RESP 16
[2023-06-11 11:38] VITALS: PULSE 76
--- NOTE | 2023-06-11 11:41 | OP ---
SURGERY DATE/TIME: 06/11/2023 1104 PREOPERATIVE DIAGNOSES: 1) The patient has history of polyps. She is six years out. She has a strong family history of colon cancer with two relatives. 2) The patient has epigastric pain despite being on Prilosec. POSTOPERATIVE DIAGNOSES: 1) EGD with findings of grade 2 over 4 gastroesophageal reflux disease. No hiatal hernia. 2) Normal colonoscopic examination to the cecum. Slightly limited by contractions and stool but not much. PROCEDURES: 1) EGD. 2) Colonoscopy complete to cecum. SURGEON: Timothy Walekr M.D. ANESTHESIA: General. COMPLICATIONS: None. CONDITION: Stable. DESCRIPTION OF PROCEDURE: The patient is taken to endoscopy. Pharyngoesophageal junction normal. Esophagus normal down to gastroesophageal junction. Rim of esophagitis grade 2 over 4. No hiatal hernia. Fundus, body and antrum satisfactory. Duodenal bulb satisfactory. Second portion satisfactory. Scope looped upon itself normal. No visible hiatal hernia. Scope withdrawn. Anal digital examination. She was just a little loose and she was pushing it intermittently and squirting air and juice at times. Despite this, the scope advanced up to the cecum. Base of the cecum, ileocecal valve, appendiceal orifice were normal. Ascending, hepatic, transverse, splenic, descending, sigmoid, rectum, anus there was slight limitation per the prep but generally speaking a good exam/normal exam. I think she is at the point where we can probably drop all follow up and she is 68, we are talking 73. She looked clean today.
[2023-06-11 11:45] VITALS: BP 114/79; TEMP 97.4; O2SAT 97
== END 2023-06-11 11:51 | disposition home or self-care (01) ==
LOC: SDC 08:50
PROVIDERS: ATTEND Surgery
DX: Z09 Encounter for follow-up examination after completed treatment for conditions other than malignant neoplasm (principal); Z86.010 Personal history of colon polyps; Z80.0 Family history of malignant neoplasm of digestive organs; R10.13 Epigastric pain; K21.9 Gastro-esophageal reflux disease without esophagitis
CPT/HCPCS: 93005; J2250; J2704